=== PATIENT | male | born 1995 ===

== ENCOUNTER 2018-07-06 02:40 | Day surgery (SDC) | payer OTHER ==
[~2018-07-06] VITALS: Ht 167.6 cm; Wt 82.1 kg
[2018-07-06] MEDS ORDERED: CLINDAMYCIN(*) 900 MG/NS 50 ML 50 ML IVPB ONE (06:00)
[2018-07-06] MEDS ORDERED: FAMOTIDINE 20 MG TAB PO ONE (06:00)
[2018-07-06] MEDS ORDERED: LIDOCAINE/SOD BICARB 8.4% SYR ID ONE (06:00)
[2018-07-06] MEDS ORDERED: NORMOSOL R SOLN(*) 1000 ML BAG 1,000 ML IV PRN (06:00)
[2018-07-06] MEDS ORDERED: MIDAZOLAM 2 MG/2 ML VIAL IVP PRN (06:00)
[2018-07-06] MEDS ORDERED: CELECOXIB 200 MG CAP PO ONE (06:00)
[2018-07-06 08:49] VITALS: BP 129/75
[2018-07-06] MEDS ORDERED: DEXAMETHASONE SOD 4 MG/ML VIAL ONE (08:55)
[2018-07-06] MEDS ORDERED: LIDOCAINE MPF 1% 5 ML VIAL ONE (08:55)
[2018-07-06] MEDS ORDERED: PROPOFOL EMUL(*) 10MG/ML 20 ML 20 ML ONE (08:55)
[2018-07-06] MEDS ORDERED: METOCLOPRAMIDE 10 MG/2 ML SDV ONE (08:55)
[2018-07-06] MEDS ORDERED: ONDANSETRON 4 MG/2 ML VIAL ONE (08:55)
[2018-07-06] MEDS ORDERED: fentaNYL CITR 100 MCG/2 ML AMP ONE (09:05)
[2018-07-06] MEDS ORDERED: ROPIVACAINE 0.2% 20 ML VIAL ONE (09:45)
[2018-07-06] MEDS ORDERED: LACTATED RINGER 3000 ML BAG IR ONE (10:45)
[2018-07-06] MEDS ORDERED: HYDR-4309 PO (10:58)
[2018-07-06] MEDS ORDERED: APAP/HYDROCODONE 325/5 TAB ONE (11:49)
[2018-07-06 12:00] VITALS: BP 107/71
[2018-07-06 12:30] VITALS: BP 115/77
[2018-07-06 12:40] VITALS: BP 115/71
[2018-07-06 12:42] VITALS: BP 112/77
--- NOTE | 2018-07-06 13:32 | OPERATIVE REPORT 1 ---
EVENT DATE: July 06, 2018 SURGEON: Glenn Abel MD ANESTHESIOLOGIST: Richardson Lagunas MD ANESTHESIA: General [facility]MA [employer] PROJECT MANAGER: Ernie Nayak PA-C PREOPERATIVE DIAGNOSIS Left knee meniscus tear and some cartilage damage. POSTOPERATIVE DIAGNOSIS Left knee meniscus tear and some cartilage damage. PROCEDURE PERFORMED Left knee partial lateral meniscectomy, chondroplasty and minor synovectomy. FINDINGS The patient had some torn cartilage within the inner-surface of the meniscus on the lateral side and some cartilage damage on the anterior aspect but no signs of major problems. We did remove minor plica. ESTIMATED BLOOD LOSS Minimal. DRAINS None. COMPLICATIONS None. IMPLANTS USED Not applicable. SPECIMENS None. TOURNIQUET TIME 24 minutes. INDICATIONS AND HISTORY This patient is a 22-year-old male who presented to my clinic for evaluation of left knee pain and irritation associated with a small undersurface meniscus tear as well as a little bit of cartilage damage and a plica. We talked to him about the implications as to when he failed all conservative management. He wanted to go ahead with an arthroscopy for partial meniscectomy, chondroplasty, and synovectomy today. The risk and benefits were discussed with the patient and informed consent was obtained. We talked about how he may not completely get better from it. He said he understood. DESCRIPTION OF PROCEDURE The patient was brought to the operating room. He and the procedure were both verified. He was placed supine on the operative table and induced and intubated by anesthesia. The knee was then prepped and draped in the usual fashion. A timeout was observed, verifying the correct patient and procedure. Standard incision was made over the anterior aspect of the left knee. The scope was inserted into the left knee and then diagnostic arthroscopy was performed. This is when there was noted to be a large medial plica that was rubbing on the cartilage and so therefore I removed the medial plica and then we were able to clean up the synovitis through this area. Once I was able to do this, I was then able to go into the medial compartment where there was a little bit of irritation on the inner surface of the meniscus. I then cleaned this up and also performed a little chondroplasty on the distal femoral condyle where there was a little scratch on this area, and the proximal tibia with no signs of other problems. I then removed a large veil over the ACL and inspected ACL and there were no signs of problems or issues associated with a probe to the ACL. I then went into the lateral compartment where I was able to identify an inner surface meniscus tear. Using a combination of meniscal biter and the suction shaver, I was able to remove this without any difficulty. I then probed the meniscus and found that it was stable to exam and no signs of gapping or problems, or flipping into the joint. This was then followed by switching the portals and then removing a lot of the synovitis and the lateral plica over the lateral site which was rubbing on the femoral condyle and then cleaning it up with the suction shaver. The fluid was all drained out of the knee and then the portal sites were closed with a 4-0 Monocryl in interrupted subcuticular fashion. This was then followed by a anesthetization with Ropivacaine and then dressing with Steri-Strips, gauze 4 by 4's and a soft dressing. The patient was awakened and extubated and transferred to the PACU in stable condition. DONNY
== END 2018-07-06 12:00 | disposition home or self-care (01) ==
LOC: OR 02:40
PROVIDERS: ATTEND Orthopaedic Surgery
DX: S83.282A Other tear of lateral meniscus, current injury, left knee, initial encounter (principal)
CPT/HCPCS: 29881; J1100; J2001; J2405; J2704; J2765; J2795; J3010; J3490